=== PATIENT | female | born 1985 | race Caucasian/White ===

== ENCOUNTER 2016-07-24 16:31 | Outpatient (CLI) | payer MEDICAID | END 2016-07-24 23:59 | disposition home or self-care (01) | DX: N92.1 Excessive and frequent menstruation with irregular cycle (principal) ==

== ENCOUNTER 2016-10-20 17:34 | Emergency (ER) | payer MEDICAID ==
[2016-10-20 17:57] VITALS: BP 148/109
[2016-10-20 18:20] LABS: BILIRUBIN,URINE NEGATIVE (NEGATIVE)
[2016-10-20 18:24] LABS: HCG UR QUAL NEGATIVE; UA w/ MICROSCOPIC CHARGE YES
--- NOTE | 2016-10-20 19:04 | ED Physician Documentation ---
PD HPI FEMALE - Stated complaint Stated Complaint: FEMALE - Chief complaint Chief Complaint: UTI - History obtained from History obtained from: Patient, Family - History of Present Illness Timing - onset: How many days ago (3) Timing - duration: Days (3) Timing - details: Gradual onset Pain level max: 4 Pain level max: 3 Associated symptoms: Dysuria, Urinary frequency. No: Fever, Chest/shoulder pain , Abdominal pain, Back pain, Pelvic pain, Vaginal pain, Vaginal discharge, Genital sore/lesion Similar symptoms before: Diagnosis (UTI) Recently seen: Not recently seen - Additional information Additional information: Patient with dysuria for 3 days. History of UTIs. States feels similar. Review of Systems Constitutional: denies: Fever, Chills Respiratory: denies: Cough GI: denies: Nausea, Vomiting, Diarrhea, Hematemesis, Bloody / black stool : denies: Discharge, Now EGA Musculoskeletal: reports: Back pain (Chronic and unchanged). 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), Dilation and currettage - Present Medications Home Medications: Ambulatory Orders Medication Instructions Recorded Confirmed Ibuprofen [Motrin] 800 mg PO Q8H PRN #30 tablet 02/15/16 Nitrofurantoin Monohyd/M-Cryst 100 mg PO BID #10 capsule 10/20/16 [Macrobid 100 mg Capsule] Phenazopyridine HCl [Pyridium] 200 mg PO TID PRN #6 tablet 10/20/16 - Allergies Allergies/Adverse Reactions: Allergies Allergy/AdvReac Type Severity Reaction Status Date / Time No Known Drug Allergies Allergy Verified 10/20/16 17:57 - Social History Does the pt smoke?: Yes Smoking Status: Current every day smoker Does the pt drink ETOH?: Yes Does the pt have substance abuse?: No - Immunizations Immunizations are current?: Yes - POLST Patient has POLST: No PD ED PE NORMAL - Vitals Vital signs reviewed: Yes - General General: Alert and oriented X 3, No acute distress, Well developed/nourished - HEENT HEENT: Moist mucous membranes - Neck Neck: Supple, no meningeal sign - Cardiac Cardiac: RRR, Strong equal pulses - Respiratory Respiratory: No respiratory distress, Clear bilaterally - Abdomen Abdomen: Soft, Non tender, Non distended - Back Back: No CVA TTP - Derm Derm: Warm and dry - Neuro Neuro: Alert and oriented X 3 - Psych Psych: Normal mood, Normal affect Results - Vitals Vitals: Vital Signs - 24 hr 10/20/16 17:54 Temperature 36.9 C Heart Rate 85 Respiratory 20 Rate Blood Pressure 148/109 H O2 Saturation 100 Oxygen O2 Source Room air - Labs Labs: Laboratory Tests 10/20/16 18:00 Urine Color YELLOW Urine Clarity CLOUDY Urine pH 6.0 Ur Specific [place] 1.020 Urine Protein 30 H Urine Glucose (UA) NEGATIVE Urine Ketones 15 H Urine Occult Blood LARGE H Urine Nitrite NEGATIVE Urine Bilirubin NEGATIVE Urine Urobilinogen 0.2 (NORMAL) Ur Leukocyte Esterase TRACE H Urine RBC 11-25 H Urine WBC 11-25 H Ur Squamous Epith Cells MOD Squamous H Urine Bacteria Few Ur Microscopic Review INDICATED Urine Culture Comments NOT INDICATED Urine HCG, Qual NEGATIVE PD MEDICAL DECISION MAKING - ED course Complexity details: reviewed results, re-evaluated patient, considered differential, d/w patient ED course: Patient is a 31-year-old female who presents to the emergency department with symptoms consistent with a UTI. Urinalysis does have squamous cells, but given her history and symptoms consistent with UTI, will treat for UTI and see how she progresses. She will return if she worsens. She is well-appearing, nontoxic. Afebrile. Denies any vaginal discharge. Denies any STD exposure. Patient counseled regarding signs and symptoms for which I believe and urgent re -evaluation would be necessary. Patient with good understanding of and agreement to plan and is comfortable going home at this time This document was made in part using voice recognition software. While efforts are made to proofread this document, sound alike and grammatical errors may occur. Departure - Departure Disposition: 01 Home, Self Care Clinical Impression: Urinary tract infection Qualifiers: Urinary tract infection type: acute cystitis Hematuria presence: with hematuria Qualified Code(s): N30.01 - Acute cystitis with hematuria Condition: Good Instructions: ED UTI Cystitis Female Follow-Up: Adis Angel MD [Primary Care Provider] - Within 1 week Prescriptions: Nitrofurantoin Monohyd/M-Cryst [Macrobid 100 mg Capsule] 100 mg PO BID #10 capsule Phenazopyridine HCl [Pyridium] 200 mg PO TID PRN #6 tablet PRN Reason: dysuria Comments: Take all antibiotics until gone. Return if you worsen. Your blood pressure was elevated today on check in to the emergency department. This does not mean that you have hypertension, it is a common phenomenon to check into the emergency department and have elevated blood pressure. I recommend that you see your primary care physician within the week to have it rechecked when you're feeling better. Discharge Date/Time: 10/20/16 19:12
[2016-10-20 20:04] LABS: UR CULTURE IF IND NOT INDICATED
== END 2016-10-20 19:12 | disposition home or self-care (01) ==
LOC: ED 17:34
DX: N30.01 Acute cystitis with hematuria (principal); R03.0 Elevated blood-pressure reading, without diagnosis of hypertension; K21.9 Gastro-esophageal reflux disease without esophagitis; Z87.440 Personal history of urinary (tract) infections; F17.200 Nicotine dependence, unspecified, uncomplicated
CPT/HCPCS: 81001; 81003; 81025; 87086; 99283

== ENCOUNTER 2017-08-31 07:35 | Emergency (ER) | payer MEDICAID ==
[2017-08-31 07:56] LABS: MUDS CUTOFF CONCENTRATIONS CUTOFF CONC BELOW:
[2017-08-31 08:04] LABS: HCG UR QUAL NEGATIVE
[2017-08-31 08:12] LABS: AMPHETAMINE SCREEN,URINE NEGATIVE (NEGATIVE); BENZODIAZEPINES SCREEN, URINE NEGATIVE (NEGATIVE); COCAINE SCREEN URINE NEGATIVE (NEGATIVE); METHADONE SCREEN, URINE NEGATIVE (NEGATIVE); METHAMPHETAMINES SCREEN, URINE NEGATIVE (NEGATIVE); OPIATE SCREEN, URINE NEGATIVE (NEGATIVE); OXYCODONE SCREEN, URINE NEGATIVE (NEGATIVE); PROPOXYPHENE SCREEN, URINE NEGATIVE (NEGATIVE); TRICYCLIC ANTIDEPRESSANT,URINE NEGATIVE (NEGATIVE)
--- NOTE | 2017-08-31 08:26 | ED Physician Documentation ---
PD HPI MHE - Stated complaint Stated Complaint: SI - Chief complaint Chief Complaint: MHE - History obtained from History obtained from: Patient, Family (Mother) - History of Present Illness Primary symptom: Suicidal ideation, Anxiety Contributing factors: Family, Legal, Substance abuse - ETOH - Additional information Additional information: The patient is a 32-year-old female who was brought to the emergency department by her mother after having a "panic attack," and expressing suicidal ideation. The patient has been in a custody ribeiro for her daughter, and then last night was cited for driving under the influence of alcohol. This morning while her mother was driving, the patient became extremely anxious and tried jumping out of the car while it was traveling at 50 mph. She was also asking her mother to "just shoot me in the face." Over the past 2 days she has threatened to jump off the [place] bridge. Besides alcohol, she denies the use of other drugs. She has no prior history of suicide attempt, and has had no psychiatric counseling. Review of Systems Constitutional: denies: Fever Ears: denies: Tinnitus/ringing Nose: denies: Congestion Throat: denies: Sore throat Cardiac: denies: Chest pain / pressure Respiratory: denies: Dyspnea, Cough GI: denies: Abdominal Pain, Vomiting : reports: LMP (3 weeks ago.). denies: Dysuria Skin: denies: Rash Musculoskeletal: denies: Back pain Neurologic: denies: Focal weakness, Numbness, Headache Psychiatric: reports: Depressed, Suicidal, Anxiety. 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), Dilation and currettage - Present Medications Home Medications: Ambulatory Orders Medication Instructions Recorded Confirmed No Known Home Medications [No 08/31/17 08/31/17 Known Home Medications] - Allergies Allergies/Adverse Reactions: Allergies Allergy/AdvReac Type Severity Reaction Status Date / Time No Known Drug Allergies Allergy Verified 08/31/17 08:06 - Social History Does the pt smoke?: Yes Smoking Status: Current every day smoker Does the pt drink ETOH?: Yes Does the pt have substance abuse?: No - Immunizations Immunizations are current?: Yes - POLST Patient has POLST: No PD ED PE NORMAL - Vitals Vital signs reviewed: Yes (Normal) - General General: Alert and oriented X 3, Well developed/nourished - HEENT HEENT: Atraumatic, EOMI, Pharynx benign - Neck Neck: No adenopathy, No JVD - Cardiac Cardiac: RRR, No murmur - Respiratory Respiratory: No respiratory distress, Clear bilaterally - Abdomen Abdomen: Soft, Non tender - Back Back: No CVA TTP - Derm Derm: No rash - Extremities Extremities: No edema, No calf tenderness / cord - Neuro Neuro: Alert and oriented X 3, No motor deficit, Normal speech PD ED PE EXPANDED - Psych Psych: Depressed, Suicidal, Tearful. No: Delusions Results - Vitals Vitals: Oxygen O2 Source Room air - Labs Labs: Laboratory Tests 08/31/17 08/31/17 08/31/17 07:52 07:52 08:10 Sodium 143 Potassium 3.4 L Chloride 108 Carbon Dioxide 23 Anion Gap 12.0 BUN 5 L Creatinine 0.7 Estimated GFR (MDRD) 97 Glucose 85 Calcium 8.8 Total Bilirubin 0.7 AST 38 ALT 33 Alkaline Phosphatase 79 Total Protein 8.7 H Albumin 4.7 Globulin 4.0 Albumin/Globulin Ratio 1.2 Lipase 29 Ur Specific [place] <=1.005 Urine HCG, Qual NEGATIVE Salicylates < 6.0 Urine Opiates Screen NEGATIVE Ur Oxycodone Screen NEGATIVE Urine Methadone Screen NEGATIVE Ur Propoxyphene Screen NEGATIVE Acetaminophen < 10 L Ur Barbiturates Screen NEGATIVE Ur Tricyclics Screen NEGATIVE Ur Phencyclidine Scrn NEGATIVE Ur Amphetamine Screen NEGATIVE U Methamphetamines Scrn NEGATIVE U Benzodiazepines Scrn NEGATIVE Urine Cocaine Screen NEGATIVE U Cannabinoids Screen NEGATIVE Ethyl Alcohol 275.5 08/31/17 14:36 Sodium Potassium Chloride Carbon Dioxide Anion Gap BUN Creatinine Estimated GFR (MDRD) Glucose Calcium Total Bilirubin AST ALT Alkaline Phosphatase Total Protein Albumin Globulin Albumin/Globulin Ratio Lipase Ur Specific [place] Urine HCG, Qual Salicylates Urine Opiates Screen Ur Oxycodone Screen Urine Methadone Screen Ur Propoxyphene Screen Acetaminophen Ur Barbiturates Screen Ur Tricyclics Screen Ur Phencyclidine Scrn Ur Amphetamine Screen U Methamphetamines Scrn U Benzodiazepines Scrn Urine Cocaine Screen U Cannabinoids Screen Ethyl Alcohol 130.3 PD MEDICAL DECISION MAKING - ED course Complexity details: reviewed results, re-evaluated patient, considered differential, d/w patient, d/w family, d/w sap consultant ED course: The patient's presentation is significant for stress reaction and suicidal ideation while under the influence of alcohol. Her alcohol level was elevated at 275. Treatment in the emergency department included application of a NicoDerm patch. The medical legal investigator was consulted and she provided outpatient resources information to the patient's mother. The patient was observed in the emergency department for over 7 hours, during which time she slept and rested comfortably most of the time. After her blood was drawn for a recheck of her alcohol level she then eloped despite urging of her mother to stay for further evaluation by the medical legal investigator. - Sepsis Event Vital Signs: Oxygen O2 Source Room air Departure - Departure Disposition: 07 Against Medical Advice Clinical Impression: Suicidal ideation, Stress reaction Alcoholic intoxication Qualifiers: Complication of substance-induced condition: with unspecified complication Qualified Code(s): F10.929 - Alcohol use, unspecified with intoxication, unspecified Condition: Stable Discharge Date/Time: 08/31/17 15:20
[2017-08-31] MEDS ORDERED: NICOTINE 14 MG PATCH TOP STA (08:29)
[2017-08-31 08:35] LABS: ALBUMIN 4.7 g/dL (3.2-5.5); ALBUMIN/GLOBULIN RATIO 1.2 (1.0-2.2); ALKALINE PHOSPHATASE 79 IU/L (42-121); ALT ALANINE AMINOTRANSFERASE 33 IU/L (10-60); AST ASPARTATE AMINOTRANSFERASE 38 IU/L (10-42); BILIRUBIN,TOTAL 0.7 mg/dL (0.2-1.0); BUN - BLOOD UREA NITROGEN 5 mg/dL (6-20); CALCIUM 8.8 mg/dL (8.5-10.3); CARBON DIOXIDE - CO2 23 mmol/L (21-32); CHLORIDE 108 mmol/L (101-111); CREATININE 0.7 mg/dL (0.4-1.0); GFR - MDRD 97 (>89); GLUCOSE 85 mg/dL (70-100); LIPASE 29 U/L (22-51); SALICYLATE < 6.0 mg/dL; SODIUM 143 mmol/L (135-145); TOTAL PROTEIN 8.7 g/dL (6.7-8.2)
[2017-08-31 08:37] LABS: ACETAMINOPHEN < 10 ug/mL (10-30)
== END 2017-08-31 15:20 | disposition left against medical advice (07) ==
LOC: ED 07:35
DX: F43.9 Reaction to severe stress, unspecified (principal); F32.9 Major depressive disorder, single episode, unspecified; R45.851 Suicidal ideations; F10.929 Alcohol use, unspecified with intoxication, unspecified; K21.9 Gastro-esophageal reflux disease without esophagitis; F17.200 Nicotine dependence, unspecified, uncomplicated
CPT/HCPCS: 36415; 80053; 80306; 80307; 80320; 80329; 81025; 83690; 99282; 99284; A9270

== ENCOUNTER 2017-11-25 11:31 | Emergency (ER) | payer MEDICAID ==
[2017-11-25 11:38] VITALS: BP 143/91
--- NOTE | 2017-11-25 12:34 | ED Physician Documentation ---
PD HPI BACK PAIN - Stated complaint Stated Complaint: BACK PX - Chief complaint Chief Complaint: Back Pain - History obtained from History obtained from: Patient, Family (mom) - History of Present Illness Timing - onset: Other (8 days ago [place] [employer] [place] Without specific injury she developed mid back pain which does not radiate and is worse with deep breathing and twisting motions. 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 surgery), Dilation and currettage - Present Medications Home Medications: Ambulatory Orders Medication Instructions Recorded Confirmed Cyclobenzaprine [Flexeril] 10 mg PO TID PRN #20 tablet 11/25/17 Hydrocodone/Acetaminophen 1 - 2 each PO Q6H PRN #14 tablet 11/25/17 [Hydrocodon-Acetaminophen 5-325] Ibuprofen [Motrin] 800 mg PO Q8H PRN #30 tablet 11/25/17 - Allergies Allergies/Adverse Reactions: Allergies Allergy/AdvReac Type Severity Reaction Status Date / Time No Known Drug Allergies Allergy Verified 11/25/17 11:38 - Social History Does the pt smoke?: Yes Smoking Status: Current every day smoker Does the pt drink ETOH?: Yes Does the pt have substance abuse?: No - Immunizations Immunizations are current?: Yes - POLST Patient has POLST: No PD ED PE NORMAL - Vitals Vital signs reviewed: Yes - General General: Alert and oriented X 3, No acute distress - Cardiac Cardiac: RRR, No murmur - Respiratory Respiratory: No respiratory distress, Clear bilaterally - Abdomen Abdomen: Non tender - Back Back: No spinal TTP, Other (The patient has equal and normal Achilles and patellar reflexes bilaterally. Normal sensation in all areas of the legs. Patient denies saddle anesthesia. Normal strength in flexion-extension at the ankles, knees, and flexion of the hips.) - Neuro Neuro: Alert and oriented X 3, Normal speech Results - Vitals Vitals: Vital Signs - 24 hr 11/25/17 11:34 Temperature 36.7 C Heart Rate 100 Respiratory 16 Rate Blood Pressure 143/91 H O2 Saturation 100 Oxygen O2 Source Room air PD MEDICAL DECISION MAKING - Sepsis Event Vital Signs: Vital Signs - 24 hr 11/25/17 11:34 Temperature 36.7 C Heart Rate 100 Respiratory 16 Rate Blood Pressure 143/91 H O2 Saturation 100 Oxygen O2 Source Room air Departure - Departure Disposition: 01 Home, Self Care Clinical Impression: Back pain Qualifiers: Back pain location: thoracic back pain Chronicity: acute Back pain laterality: left Qualified Code(s): M54.6 - Pain in thoracic spine Condition: Good Record reviewed to determine appropriate education?: Yes Instructions: ED Neck Back Pain General Prescriptions: Cyclobenzaprine [Flexeril] 10 mg PO TID PRN #20 tablet PRN Reason: Spasms Hydrocodone/Acetaminophen [Hydrocodon-Acetaminophen 5-325] 1 - 2 each PO Q6H PRN #14 tablet PRN Reason: pain Ibuprofen [Motrin] 800 mg PO Q8H PRN #30 tablet PRN Reason: PAIN &/OR FEVER Comments: Call your doctor to arrange a follow-up appointment, make the next available appointment. In the interim, return anytime if worse or if new symptoms develop. Do not drink or drive while taking narcotic pain medication. Note that many narcotic pain relievers also contain Tylenol/acetaminophen. Please ensure that your total dose of acetaminophen from all sources does not exceed 3 g (3000 mg) per day. You may get constipated while on this medication. Take a stool softener such as Colace twice a day while you are on it. Also add an gtbo-tzn-ovahcer laxative such as senna or MiraLAX on any day that you do not have a bowel movement. If you received a narcotic pain medication or sedative while in the emergency department, do not drive for the next 24 hours. Your blood pressure was elevated today on check into the emergency department. This does not mean that you have hypertension, it is a common phenomenon to come to the emergency department and have elevated blood pressure. I recommend that you see your primary care physician within the week to have it rechecked when you are feeling better. Forms: Activity restrictions
[2017-11-25] MEDS ORDERED: CYCLOBENZAPRINE 10 MG TABLET PO STA (12:47)
[2017-11-25] MEDS ORDERED: HYDROcod/ACETAM 5/325 MG TABLET PO STA (12:47)
== END 2017-11-25 13:11 | disposition home or self-care (01) ==
LOC: ED 11:31
DX: M54.6 Pain in thoracic spine (principal); R03.0 Elevated blood-pressure reading, without diagnosis of hypertension; F17.200 Nicotine dependence, unspecified, uncomplicated
CPT/HCPCS: 99283; A9270

== ENCOUNTER 2018-10-23 15:39 | Outpatient (CLI) | payer OTHER ==
[2018-10-23 16:18] VITALS: BP 131/80
[2018-10-23 16:38] LABS: BASOPHILS % (AUTO) 0.3 %; EOSINOPHILS # (AUTO) 0.2 10^3/uL (0.0-0.7); EOSINOPHILS % (AUTO) 1.7 %; HGB - HEMOGLOBIN 12.9 g/dL (12.0-16.0); LYMPHOCYTES # (AUTO) 1.7 10^3/uL (1.5-3.5); LYMPHOCYTES % (AUTO) 15.2 %; MEAN CORPUSCULAR HEMOGLOBIN 30.1 pg (27.0-31.0); MEAN CORPUSCULAR HGB CONC 33.2 g/dL (32.0-36.0); MEAN CORPUSCULAR VOLUME 90.7 fL (81.0-99.0); MEAN PLATELET VOLUME 9.7 fL (7.9-10.8); MONOCYTES # (AUTO) 0.6 10^3/uL (0.0-1.0); MONOCYTES % (AUTO) 5.5 %; NEUTROPHILS # (AUTO) 8.3 10^3/uL (1.5-6.6); NEUTROPHILS % (AUTO) 76.5 %; PLT - PLATELET COUNT 251 10^3/uL (130-450); RED BLOOD COUNT 4.29 10^6/uL (4.20-5.40); RED CELL DISTRIBUTION WIDTH 12.9 % (12.0-15.0); WHITE BLOOD COUNT 10.8 x10^3/uL (4.8-10.8)
[2018-10-23 18:09] LABS: BILIRUBIN,URINE NEGATIVE (NEGATIVE); GLUCOSE, URINE (UA) NEGATIVE (NEGATIVE); KETONES,URINE (UA) NEGATIVE (NEGATIVE); LEUKOCYTE ESTERASE, URINE NEGATIVE (NEGATIVE); NITRITE,URINE NEGATIVE (NEGATIVE); OCCULT BLOOD,URINE NEGATIVE (NEGATIVE); PROTEIN,URINE NEGATIVE (NEGATIVE); UROBILINOGEN,URINE 0.2 (NORMAL) E.U./dL (NORMAL)
[2018-10-23 18:19] LABS: CLARITY,URINE CLEAR (CLEAR)
[2018-10-23 18:20] LABS: BACTERIA,URINE None Seen /HPF (None Seen); RBC,URINE None Seen /HPF (0-5); SQUAMOUS EPITHELIAL CELL,UR MOD Squamous (<= Few)
--- NOTE | 2018-10-23 20:38 | Ultrasound Report ---
Reason: vaginal spotting Procedure Date: 10/23/2018 Accession Number: [id number] / [id number] Procedure: US - OB Limited CPT Code: FULL RESULT: EXAM: LIMITED OBSTETRICAL ULTRASOUND EXAM DATE: 10/23/2018 05:23 PM. CLINICAL HISTORY: Vaginal spotting. COMPARISON: None. TECHNIQUE: Real-time sonographic evaluation of the fetus performed by the demo coordinator. Multiple retail field representative static images were saved for review. Additional transvaginal imaging to more accurately evaluate cervical length/placental position/etc. DATING: Established EGA 25 weeks 0 days with GABRIELLA 02/05/2019. GENERAL EVALUATION Ortiz . Cardiac activity: 156 bpm. movement: Visualized. Presentation: Cephalic. Placenta: Anterior position. No placenta previa. Lower margin of placenta is 3.35 cm from internal loss. Amniotic fluid: Normal. RAVINDRA 17.4 cm. MVP 5.1 cm. MATERNAL STRUCTURES Cervix measures 4.3 cm in length by transvaginal technique. The cervix appears closed. IMPRESSION: 1. Intrauterine . Cervix appears closed measuring 4.3 cm in length. Anterior placenta without placenta previa. 2. Normal amniotic fluid volume with RAVINDRA of 17.4 cm. RADIA
--- NOTE | 2018-10-23 21:37 | PREOP HISTORY & PHYSICAL ---
DATE OF SERVICE: 10/23/2018 Physician: Jose R Wray MD PATIENT IDENTIFICATION: A 33-year-old G6, P2, AB3 female whose EDC is 02/05/2019, making her 25 week s 0 days. CHIEF COMPLAINT: Red vaginal spotting. HISTORY OF PRESENT ILLNESS: The patient states at 7 o'clock this morning, she had a single episode o f vaginal spotting. She denies any history of any trauma. She denies any history of any recent inte rcourse. She has not had any previous episodes during her at all. She is noted to be O po sitive. Her she states she has some chronic hypertension at the beginning of her . PAST SURGICAL HISTORY 1. D and C x3. 2. Cryotherapy. ALLERGIES: NONE KNOWN. MEDICATIONS 1. vitamins. 2. Aspirin 81 mg daily. 3. Zantac. HABITS: The patient smokes 10 cigarettes per day, has been counseled against this. Denies use of al cohol, street or addictive drugs or tetrahydrocannabinol. 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 They currently live in [place]. 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 FAMILY HISTORY: Positive for chronic hypertension, heart disease, lung cancer in smokers, as well as CPAP. PHYSICAL EXAMINATION VITAL SIGNS: Blood pressure is 130/80. HEENT: Pupils are equal, round, reactive. Extraocular muscles are intact. NECK: Thyroid is not palpably enlarged. HEART: Regular rate and rhythm without murmurs. LUNGS: Lung arnold are clear without rales or wheezes. BACK: No spinal or CVA tenderness noted. ABDOMEN: Gravid 26 cm, soft, nontender. Strip did not show evidence of any contractions. There is no calf or CVA tenderness. DIAGNOSTIC: Ultrasound preliminary shows a cervix, which was 4.5 cm in length and there was no evide nce of any placental issues. IMPRESSION: A 33-year-old G6, P2, female at 25 weeks EGA with a single episode of vaginal spotting o n a Rh positive female. At this particular time, we will await the urinalysis. If this is negative, we will allow her to go home. I have strongly encouraged her to seek OB care for the rest of her pr egnancy whether that is here or in [place]. TD: 10/23/2018 18:12
== END 2018-10-23 18:58 | disposition home or self-care (01) ==
LOC: WFO 15:39 → FBP 15:47 → WFO 18:58
PROVIDERS: ATTEND Obstetrics & Gynecology
DX: O26.852 Spotting complicating pregnancy, second trimester (principal); O99.332 Smoking (tobacco) complicating pregnancy, second trimester; F17.210 Nicotine dependence, cigarettes, uncomplicated; Z3A.25 25 weeks gestation of pregnancy
CPT/HCPCS: 36415; 76815; 76817; 81001; 85025; 86850; 86900; 86901; 87086; 99214